=== PATIENT | male | born 1955 | race Caucasian/White ===

== ENCOUNTER 2022-11-05 12:31 | Outpatient (CLI) | payer MEDICARE, SELFPAY ==
--- NOTE | 2022-11-05 12:11 | W.ANESCHARGE ---
Anesthesia Charges Start Date/Time Anesthesia Start Date: 11/05/22 Anesthesia Start Time: 13:07 Stop Date/Time Anesthesia Stop Date: 11/05/22 Anesthesia Stop Time: 14:29
--- NOTE | 2022-11-05 14:37 | W.ANESCHARGE ---
Anesthesia Charges Start Date/Time Anesthesia Start Date: 11/05/22 Anesthesia Start Time: 13:07 Stop Date/Time Anesthesia Stop Date: 11/05/22 Anesthesia Stop Time: 14:29
== END 2022-11-05 12:32 | disposition home or self-care (01) ==
LOC: OP CLINIC 12:31
PROVIDERS: PCP Family Medicine; Visit Provider Surgery
DX: Z12.11 Encounter for screening for malignant neoplasm of colon (principal); K63.5 Polyp of colon; K57.30 Diverticulosis of large intestine without perforation or abscess without bleeding; Z86.010 Personal history of colon polyps
CPT/HCPCS: 45385; 811; 88305; J2704

== ENCOUNTER 2024-02-12 09:19 | Outpatient (CLI) | payer MEDICARE, SELFPAY ==
--- OUTSIDE RECORDS SUMMARY | 2024-02-15 18:02 | XMS_ITS | Clinical Summary ---
Author Organization [facility] Address [place], [place] [address] Care Team Providers Care Substation Electrician Supervisor Name Role Phone Nonstaff, Doctor Primary Care Provider Unavailab le Allergies No known active allergies Medications Medication Sig Dispensed Refills Start Date End Date Status simvastatin (ZOCOR) 20 mg tablet Take 20 mg by mouth once daily with evening meal. Active lisinopril (PRINIVIL; ZESTRIL) 20 mg tablet Take 20 mg by mouth once daily. Active LORazepam (ATIVAN) 1 mg tablet Take 1 tablet by mouth every 6 hours if needed for Anxiety. 10 tablet 0 06/30/2011 Active durable medical equipment (DME)Indications:Adis ateral foot pain Custom functional/accommo dative orthotics For pronation, flatfoot, plantar fasciitis 1 Each 04/17/2021 Active Social History Tobacco Use Types Packs/Day Years Used Date Smoking Tobacco: Never Smokeless Tobacco: Never Tobacco Cessation:Counseling Given: No Alcohol Use Standard Drinks/Week Comments Yes 0 (1 standard drink = 0.6 oz pur e alcohol) on the weekends Sex and Gender Information Value Date Recorded Sex Assigned at Not on file Gender Identity Not on file Sexual Orientation Not on file Obstetrics History Last Filed Vital Signs Vital Sign Reading Time Taken Comments Blood Pressure 136/77 06/30/2011 2:45 AM HOME SECURITY PROFESSIONAL Pulse 57 06/30/2011 2:45 AM HOME SECURITY PROFESSIONAL Temperature 36.7 ??C (98 ??F) 06/30/2011 12:06 AM HOME SECURITY PROFESSIONAL Respiratory Rate 16 06/30/2011 2:45 AM HOME SECURITY PROFESSIONAL Oxygen Saturation 98% 06/30/2011 2:45 AM HOME SECURITY PROFESSIONAL Inhaled Oxygen Concentration - - Weight 145.2 kg (320 lb) 06/30/2011 12:06 AM HOME SECURITY PROFESSIONAL Height 193 cm (6' 4) 06/30/2011 12:06 AM HOME SECURITY PROFESSIONAL Body Mass Index 38.95 06/30/2011 12:06 AM HOME SECURITY PROFESSIONAL Plan of Treatment Health Maintenance Due Date Last Done Comments Tdap 1968 Depression screening for age 12+ 1969 BMI (ht and wt on same day) for age 18+ 09/10/1975 Hepatitis C screening for age 18-79 09/10/1975 Tetanus booster 1977 Colonoscopy through age 75 2002 Lipids for age 45-75 2002 Zoster (shingles) series for age 50+ (1 of 2) 09/10/19 08 Pneumococcal series for age 65+ (1 of 1 - PCV) 023 COVID-19 vaccine series ( - 2022- season) 4 Influenza for age 65+ 02/01/2024 Care Teams Substation Electrician Supervisor Relationship Specialty Start Date End Date Nonstaff, Doctor NON STAFF DOCTOR PCP - General 07/04/11
--- OUTSIDE RECORDS SUMMARY | 2024-02-15 18:02 | XMS_ITS | Data Portability ---
Author Organization [facility] Katrina rosales, [facility] Address [address] [place] [address] Care Team Providers Care Analog Design Engineer Name Role Phone [facility] Primary Care Pr rosanaer Assessment No assessment recorded. Plan of Treatment Reminders Order Date Submit Date Provider Last Modified By Organization Details Last Modified Time Details Appointments None recorded . Lab PSA, serum or plasma 020 020 [email or web address] Not available 0 15:10:48 PSA, serum or plasma 021 021 [email or web address] Not available 1 11:59:12 PSA, serum or plasma 021 021 [email or web address] Not available 1 10:36:26 PSA, serum or plasma 022 022 [email or web address] Not available 2 16:34:03 PSA, serum or plasma 024 024 [email or web address] [facility], [address] [place], [address], 4 15:36:45 Referral None recorded . Procedures None recorded . Surgeries None recorded . Imaging None recorded . Medication Orders None recorded . Patient TargetsNo targets recorded. Patient Instructions Encounter Date Encounter Id Patient Instructions Last Modified By Organization Details Last Modified Time 05/03/2020 [id number] PSA <0.04. F/up with PSA when he returns from [place]. [email or web address] Not available 05/03/2020 16:01:49 11/06/2020 [id number] stable, will nisreen n rtc 6 months for PSA recheck before goes to [place] for the winter. Not available 11/06/2020 11:59:05 04/13/2021 [id number] will plan rtc fo r PSA recheck in the Spring when he is back from [place]. [email or web address] Not available 04/13/2021 10:41:59 12/10/2021 [id number] will plan rtc early May for recheck PSA. [email or web address] Not available 12/10/2021 16:34:03 11/21/2023 [id number] discussed trying to cut back on the tamsulosin go to one cap/day for a while and if doing OK try going without it. plan rtc 1 year for PSA recheck. [email or web address] Not available 11/21/2023 16:01:45 Reason for Referral None Reported. Results Created Date Observation Date Name Description Value Unit Range Abnormal Flag Note LastModifiedBy Organization Detail LastModifiedTime 11/06/2020 PSA, serum or plasm a PSA, Total 0.04 Not Available [facility] [address], [place], [address], 11/06/2020 11:34:47 05/03/20 20 05/03/2020 PSA, serum or plasm a PSA, Total <0.04n g/mL INDUSTRIAL ROBOTICS MECHANIC by TS ARBOREAL SCIENTIST Not Available [facility] [address], [place], [address], 05/03/2020 15:03:51 04/13/20 21 04/13/2021 PSA, serum or plasm a PSA, Total 0.13ng /ml Not Available [facility] [address], [place], [address], 04/13/2021 10:35:59 12/11/19 22 12/10/2021 PSA, serum or plasm a PSA, Total 0.29 ng/mL Not Available [facility] [address], [place], [address], 12/10/2021 16:22:26 11/21/19 24 11/21/2023 PSA, serum or plasm a PSA 0.25 ng/mL 0-4.0 NG/mL Not Available [facility] [address], [place], [address], 11/19/2023 13:49:44 Result Notes None recorded. Problems Name Problem SNOMED Code Status Onset Date Resolution Date Notes Provider Name and Address Organization Details Recorded Time Prostate specific antigen above reference range 307585699 Active 2012 790.93 : ELEVATED PSA - Notes:nega tive biopsy at [place] [facility] Available [facility] 0 02:03:27 Hypertens payton disorder 92834064 Active 2019 I10 : Essential (primary) hypertensi on Not Available [facility] 0 13:33:18 Malignant tumor of prostate 570896934 Active 2019 Sherly alvarado [facility] 0 15:03:44 Problem Notes None recorded. Procedures Surgical History Date Name Laterality Status Provider Name and Address Organization Details Recorded Time 4 INDUSTRIAL ROBOTICS MECHANIC/blood draw completed Chidi alvarado [facility] 11/19/2023 13:49:35 3 [facility]/21[facility]23 15:18:50 2 INDUSTRIAL ROBOTICS MECHANIC/blood draw completed Manny Velásquez MD [address] [place] [address],[address], [address], [facility] 12/10/2021 16:22:22 1 Blood Draw/INDUSTRIAL ROBOTICS MECHANIC/PSA RESULTS completed Compa alvarado [facility] 04/13/2021 10:35:55 1 Blood Draw/INDUSTRIAL ROBOTICS MECHANIC/PSA RESULTS completed Manny Velásquez MD [address] [place] [address],[address], [address], [facility] 11/06/2020 11:34:43 0 Blood Draw/INDUSTRIAL ROBOTICS MECHANIC/PSA RESULTS completed Sherly alvarado [facility] 05/03/2020 15:04:40 Prostate Surgery completed Elder alvarado [facility] 05/03/2020 15:09:50 Imaging Results None recorded. Procedure Notes None recorded. Medical Equipment None Reported. Allergies No known drug allergies Medications Name Sig Start Date Stop Date Status Note LastModified by Organization Details LastModified Time lisinopril 20 mg-hydrochl orothiazide 12.5 mg tablet TAKE 1 TABLET BY MOUTH EVERY DAY active Not Available Not Available No t Available ibuprofen 800 mg tablet 11/06 completed Not Available Not Available Not Available hydrocodone 5 mg-acetamin ophen 325 mg tablet 11/06 completed Not Available Not Available Not Available tamsulosin 0.4 mg capsule TAKE 2 CAPSULES BY MOUTH EVERY DAY active Not Available Not Available No t Available linezolid 600 mg tablet 04/13 completed Not Available Not Available Not Available simvastatin 20 mg tablet TAKE 1 TABLET BY MOUTH EVERY EVENING active Not Available Not Available No t Available clotrimazol e-betametha sone 1 %-0.05 % topical cream active Not Available Not Available Not Available Baby Aspirin 81 mg chewable tablet Chew 1 tablet every day by oral route. active Not Available Not Available No t Available Vitals Date Recorded Body height Body mass index (BMI) Body weight Provider Name and Address Organization Details Last Updated DateTime 12/10/2021 187.96 cm 48.8 kg/m2 004353.1 g Manny Velásquez MD [address] [facility] [address], [place], [address], [facility] 12/10/2021 16:21:24 Date Recorded Body height Body mass index (BMI) Body weight Provider Name and Address Organization Details Last Updated DateTime 11/21/2023 190.5 cm 45 kg/m2 484768.25 g Rodrigue Summers [facility] 11/21/2023 15:17:47 Date Recorded Body height Body mass index (BMI) Body weight Provider Name and Address Organization Details Last Updated DateTime 05/03/2020 187.96 cm 44.9 kg/m2 048844.33 g Sherly Ramos [facility] 05/03/2020 15:06:34 Date Recorded Body height Provider Name an d Address Organization Details Last Updated DateTime 11/06/2020 187.96 cm Vijay Monae [facility] 11/06/2020 11:28:54 Date Recorded Body mass index (BMI) Body weight Provider Name and Address Organization Details Last Updated DateTime 11/06/2020 44.9 kg/m2 496833.33 g Manny Velásquez MD [address] [facility] [address], [address], [facility] 11/06/2020 11:33:53 Date Recorded Body height Body mass index (BMI) Body weight Provider Name and Address Organization Details Last Updated DateTime 04/13/2021 187.96 cm 48.8 kg/m2 380772.1 g Compa Benitez [facility] 04/13/2021 10:25:30 Social History Question Answer Notes LastModified by Organizat ion Details LastModified Time Tobacco Smoking Status Former Smoker QUIT: 1979 Sherly alvarado [facility] 05/03/2020 15:07:27 What Is Your Level Of Alcohol Consumption? Moderate [email or web address] Information not available 11/06/2020 What Is Your Level Of Caffeine Consumption? Moderate [email or web address] Information not available 11/06/2020 Are You Currently Employed? 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 18+yearssinc elastcigaret te [email or web address] Information not available 04/13/2021 Race WHITE [email or web address] Information no t available 04/13/2021 Ethnicity Not /Lat sonali [email or web address] Information not available 04/13/2021 Preferred Language Ethiopian Information not available 04/13/2021 Recreational Drug Use No [email or web address] Information not available 04/13/2021 Could You Be ? No [email or web address] Information not available 04/13/2021 What Was The Date Of Your Most Recent Tobacco Screening? 11/21/2023 [email or web address] Information not available 11/21/2023 What Is Your Relationship Status? Single [email or web address] Information not available 04/13/2021 Are You Sexually Active? Yes Information not available 04/13/2021 Do You Use Any Illicit Or Recreational Drugs? No Information not available 04/13/2021 Do You Or Have You Ever Used Any Other Forms Of Tobacco Or Nicotine? No Information not available 04/13/2021 Sex: Unknown Functional Status None recorded. Mental Status None recorded. Family History Relationship Description Onset Age of this Age Resolved Age Notes Father Family history of malignant neoplasm of prostate Medical History Condition Response Sexually Transmitted Infection N Diabetes N Bleeding Disorder N High Blood Pressure Y Kidney Stones N Cancer Y Lung Disease N Depression N High Cholesterol Y GERD/Acid Reflux N Heart Disease N Immunizations Vaccine Type Date Status Provider Name and Address Organization Details Recorded Time Influenza, recombinant, quadrivalent, PF 03/23/2020 completed Rodrigue Summers [facility], [facility] 11/21/2023 15:17:54 COVID-19, mRNA, LNP-S, PF, 100 mcg/0.5mL dose or 50 mcg/0.25mL dose 04/18/2021 completed Rodrigue Summers [facility], [facility] 11/21/2023 15:17:54 Td (adult), 2 Lf tetanus toxoid, preservative free, adsorbed 03/23/2020 completed Rodrigue alvarado, [facility] 11/21/2023 15:17:54 Influenza, split virus, quadrivalent, PF 03/29/2021 completed Rodrigue Summers [facility], [facility] 11/21/2023 15:17:54 Past Encounters Encounter ID Performer Location Encounter Start Date Encounter Closed Date Diagnosis/Indication Diagnosis SNOMED-CT Code Diagnosis ICD10 Code [id number] Elder Bruno [facility] [employer] [place] [address] 05/03/2020 14:29:44 05/04/2020 08:47:52 Malignant tumor of prostate 618764754 C61 [id number] [facility] [address] [address] [place] [address] 11/06/2020 11:17:53 11/08/2020 10:31:42 Malignant tumor of prostate 735110081 C61 [id number] MD David Arreola [employer] [address] [place] [address] 04/13/2021 10:08:51 04/16/2021 10:51:45 Malignant tumor of prostate 196267602 C61 [id number] MD David Arreola [employer] [address] [place] [address] 12/10/2021 15:45:26 12/12/2021 11:16:14 Malignant tumor of prostate 320007200 C61 [id number] MD SEE [facility] [address] [place] [address] 11/21/2023 14:49:36 11/24/2023 16:12:26 Malignant tumor of prostate 020639359 C61 Health Concerns Section Related Observation LastModified by Organization Detai ls LastModified Time None Recorded Concern Status LastModified by Organization Details LastModified Time None Recorded Advance Directives Directive None Recorded Payers Encounter Date Sequence Insurance Name Policy Number Policy López Covered Member ID López Member ID Guarantor Name 11/06/2020 1 [employer] - [place] [place] (HMO) IFB Gomez Johnson [id number] Gomez Bejarano 04/13/2021 1 [employer] - [place] (HMO) IFB Gomez Johnson [id number] Gomez Johnson 12/10/2021 1 [employer] - [place] (HMO) IFB Gomez Johnson [id number] Gomez Johnson 11/21/2023 1 [place] [employer] Gomez Bejarano [id number] Gomez Bejarano 11/21/2023 2 [employer] HEALTHCARE OPTIONS (MEDICARE SUPPLEMENT) Gomez Bejarano [id number] Gomez Bejarano Notes Date Note Type Note Provider Name and Address Organization Details Recorded Time 05/03/2020 text/html HPI Notes: GOMEZ BEJARANO is a 64 year old male. Pt had IMRT. Doing well. No bothersome voiding sxs. Mild hot flashes. Takes flomax. ElderJUAN ANTONIO [facility] 05/03/2020 16:02:13 11/06/2020 text/html HPI Notes: follo w up CaP. had XRT and hormone shots, last visit 6 month ago no shot given. PSA 0.04 today. voiding OK, had a single episode of slough of tissue and a little blood like a scab, no dysuria. Manny Velásquez MD [address] [facility],[address], [place], [address], [facility] 11/06/2020 12:00:01 04/13/2021 text/html HPI Notes: follo w up CaP. had XRT and hormone shots, last shot was 18 months ago. PSA 0.13 today and had one done 2 weeks ago at PCP and was about 0.25. pre treatment was 7.73 Manny Velásquez MD [address] [place] [address],[address], [address], [facility] 04/13/2021 10:42:19 12/10/2021 text/html HPI Notes: follo w up CaP, got XRT and got eligard for two yeas, none since two years ago. PSA 0.29 today was 0.25 at PCP lat fall and 0.13 here last april. voiding OK. no heme/dysuria. Manny Velásquez MD [address] [place] [address],[address], [place], [address], [facility] 12/10/2021 16:34:20 11/21/2023 text/html HPI Notes: follo w up CaP, got XRT and got eligard for two yeas, none since 4 years ago. PSA today is 0.25 which is stable. voiding OK, no heme/dysuria. taking tamsulosin 2/day. Manny Velásquez MD [address] [facility],[address], [place], [address], [facility] 11/21/2023 16:02:30
--- OUTSIDE RECORDS SUMMARY | 2024-02-15 18:02 | XMS_ITS | Continuity of Care Document ---
Author Organization [facility], [facility] Address [address] [place] [address] Care Team Providers Care Fringe Weaver Name Role Phone [facility] Primary Care Pr ovider Assessment No assessment recorded. Plan of Treatment Reminders Order Date Submit Date Provider Last Modified By Organization Details Last Modified Time Details Appointments None recorded . Lab PSA, serum or plasma 024 024 [email or web address] [facility], [address], [place], [address], 15:36:45 Referral None recorded . Procedures None recorded . Surgeries None recorded . Imaging None recorded . Medication Orders None recorded . Patient TargetsNo targets recorded. Patient Instructions Encounter Date Encounter Id Patient Instructions Last Modified By Organization Details Last Modified Time 11/21/2023 [id number] discussed trying to cut back on the tamsulosin go to one cap/day for a while and if doing OK try going without it. plan rtc 1 year for PSA recheck. [email or web address] Not available 11/21/2023 16:01:45 Reason for Referral None Reported. Results Created Date Observation Date Name Description Value Unit Range Abnormal Flag Note LastModifiedBy Organization Detail LastModifiedTime 11/21/19 24 11/21/2023 PSA, serum or plasm a PSA 0.25 ng/mL 0-4.0 NG/mL Not Available [facility] [address], [place], [address], 11/19/2023 13:49:44 Result Notes None recorded. Problems Name Problem SNOMED Code Status Onset Date Resolution Date Notes Provider Name and Address Organization Details Recorded Time Prostate specific antigen above reference range 268303334 Active 2012 790.93 : ELEVATED PSA - Notes:nega tive biopsy at [place] Not Available [facility] 0 02:03:27 Hypertens payton disorder 90244038 Active 2019 I10 : Essential (primary) hypertensi on Not Available [facility] 0 13:33:18 Malignant tumor of prostate 666092466 Active 2019 Sherly alvarado [facility] 0 15:03:44 Problem Notes None recorded. Procedures Surgical History Date Name Laterality Status Provider Name and Address Organization Details Recorded Time 4 WOUND CARE CENTER CONSULTANT/blood draw completed Chidi alvarado [facility] 11/19/2023 13:49:35 3 Colonoscopy completed Rodrigue Summers [facility] 11/21/2023 15:18:50 2 WOUND CARE CENTER CONSULTANT/blood draw completed Manny Velásquez MD [address] [place] [address],[facility] [address], [place], [address], [facility] 12/10/2021 16:22:22 1 Blood Draw/WOUND CARE CENTER CONSULTANT/PSA RESULTS completed Compa Benitez [facility] 04/13/2021 10:35:55 1 Blood Draw/WOUND CARE CENTER CONSULTANT/PSA RESULTS completed Manny Velásquez MD [address] [place] [address],[address], [address], [facility] 11/06/2020 11:34:43 0 Blood Draw/WOUND CARE CENTER CONSULTANT/PSA RESULTS completed Sherly alvarado [facility] 05/03/2020 15:04:40 Prostate Surgery completed Elder Bruno [facility] 05/03/2020 15:09:50 Imaging Results None recorded. Procedure [...] Updated DateTime 11/21/2023 190.5 cm 45 kg/m2 000086.25 g Rodrigue Summers [facility] 11/21/2023 15:17:47 Social History Question Answer Notes LastModified by Organizat ion Details LastModified Time Tobacco Smoking Status Former Smoker QUIT: 1979 Sherly alvarado [facility] 05/03/2020 15:07:27 What Is Your Level Of Alcohol Consumption? Moderate [email or web address] Information not available 11/06/2020 What Is Your Level Of Caffeine Consumption? Moderate Information not available 11/06/2020 Are You Currently Employed? 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 16+yearssinc elastcigaret te [email or web address] Information not available 04/13/2021 Race WHITE [email or web address] Information no t available 04/13/2021 Ethnicity Not /Lat sonali [email or web address] Information not available 04/13/2021 Preferred Language Ivorian [email or web address] Information not available 04/13/2021 Recreational Drug Use No [email or web address] Information not available 04/13/2021 Could You Be ? No [email or web address] Information not available 04/13/2021 What Was The Date Of Your Most Recent Tobacco Screening? 11/21/2023 [email or web address] Information not available 11/21/2023 What Is Your Relationship Status? Single [email or web address] Information not available 04/13/2021 Are You Sexually Active? Yes [email or web address] Information not available 04/13/2021 Do You Use [...] neoplasm of prostate Medical History Condition Response High Blood Pressure Y Kidney Stones N Depression N Lung Disease N GERD/Acid Reflux N Sexually Transmitted Infection N Cancer Y High Cholesterol Y Diabetes N Bleeding Disorder N Heart Disease N Immunizations Vaccine Type Date Status Provider Name and Address Organization Details Recorded Time Influenza, recombinant, quadrivalent, PF 03/23/2020 completed Rodrigue alvarado [facility] 11/21/2023 15:17:54 COVID-19, mRNA, LNP-S, PF, 100 mcg/0.5mL dose or 50 mcg/0.25mL dose 04/18/2021 completed Rodrigue alvarado [facility] 11/21/2023 15:17:54 Td (adult), 2 Lf tetanus toxoid, preservative free, adsorbed 03/23/2020 completed Rodrigue alvarado [facility] 11/21/2023 15:17:54 Influenza, split virus, quadrivalent, PF 03/29/2021 completed Rodrigue Summers [facility] 11/21/2023 15:17:54 Past Encounters Encounter ID Performer Location Encounter Start Date Encounter Closed Date Diagnosis/Indication Diagnosis SNOMED-CT Code Diagnosis ICD10 Code [id number] Manny Velásquez MD [facility] [address] [place] [address] 11/21/2023 14:49:36 11/24/2023 16:12:26 Malignant tumor of prostate 654847806 C61 Health Concerns Section Related Observation LastModified by Organization Detai ls LastModified Time None Recorded Concern Status LastModified by Organization Details LastModified Time None Recorded Payers Encounter Date Sequence Insurance Name Policy Number Policy López Covered Member ID López Member ID Guarantor Name 11/21/2023 1 [place] [employer] José Esparza [id number] José Esparza 11/21/2023 2 [facility] HEALTHC[facility] OPTIONS (MEDICARE SUPPLEMENT) José Esparza [id number] José Esparza Notes Date Note Type Note Provider Name and Address Organization Details Recorded Time 11/21/2023 text/html HPI Notes: follo w up CaP, got XRT and got eligard for two yeas, none since 4 years ago. PSA today is 0.25 which is stable. voiding OK, no heme/dysuria. taking tamsulosin 2/day. Manny Velásquez MD [address] [facility],[address], [place], [address], [facility] 11/21/2023 16:02:30
== END 2024-02-12 09:20 | disposition home or self-care (01) ==
LOC: NFLDREF 02-15 17:59
PROVIDERS: PCP Family Medicine; Referring Provider Family Medicine; Visit Provider Family Medicine
DX: N40.0 Benign prostatic hyperplasia without lower urinary tract symptoms (principal); E78.5 Hyperlipidemia, unspecified; I10 Essential (primary) hypertension; C61 Malignant neoplasm of prostate
CPT/HCPCS: 80053; 80061; G0103

== ENCOUNTER 2025-03-11 12:23 | Outpatient (CLI) | payer MEDICARE, SELFPAY | END 2025-03-11 12:24 | disposition home or self-care (01) | PROVIDERS: PCP Family Medicine; Visit Provider Family Medicine | DX: Z00.00 Encounter for general adult medical examination without abnormal findings (principal); E66.01 Morbid (severe) obesity due to excess calories; Z68.43 Body mass index [BMI] 50.0-59.9, adult; E78.5 Hyperlipidemia, unspecified; N40.0 Benign prostatic hyperplasia without lower urinary tract symptoms; I10 Essential (primary) hypertension; Z12.5 Encounter for screening for malignant neoplasm of prostate | CPT/HCPCS: 80053; 80061; G0103 ==